=== PATIENT | female | born 1975 | race Two or more races ===

== ENCOUNTER 2017-06-07 23:37 | Emergency (ER) | payer MEDICAID, OTHER ==
[~2017-06-07] VITALS: Ht 152.4 cm; Wt 63.5 kg
[2017-06-08] MEDS ORDERED: OXYCODONE/APAP 5-325 MG TABLET PO ONE (00:15)
[2017-06-08] MEDS ORDERED: ONDANSETRON ODT 4 MG TAB.RAPDIS SL ONE (00:15)
[2017-06-08] MEDS ORDERED: ONDANSETRON ODT 4 MG TAB.RAPDIS ONE (00:23)
[2017-06-08] MEDS ORDERED: OXYCODONE/APAP 5-325 MG TABLET ONE (00:23)
--- NOTE | 2017-06-08 01:14 | NUR ---
Patient discharged to home in stable conditon. Written and verbal after care instructions given. Patient verbalizes understanding of instructions.
== END 2017-06-08 01:15 | disposition home or self-care (01) ==
LOC: ER 23:42
DX: S50.01XA Contusion of right elbow, initial encounter (principal); M54.9 Dorsalgia, unspecified; V89.2XXA Person injured in unspecified motor-vehicle accident, traffic, initial encounter; Z88.6 Allergy status to analgesic agent; Y93.89 Activity, other specified; Y92.410 Unspecified street and highway as the place of occurrence of the external cause; Y99.8 Other external cause status
CPT/HCPCS: 71010; 72110; 73080; 99284; A4663; Q0162

== ENCOUNTER 2017-07-17 19:35 | Emergency (ER) | payer BC, OTHER ==
[~2017-07-17] VITALS: Ht 152.4 cm; Wt 63.5 kg
--- NOTE | 2017-07-17 19:48 | NUR ---
Patient walked in to ER c/o chest pain. Patient states that the pain has been coming and going for approximately 2-3 weeks now and that she was seen at [facility] ER on 06/26/17 and was diagnosed with anxiety. To room 5A.
--- NOTE | 2017-07-17 19:54 | NUR ---
ERMD at bedside for MSE.
[2017-07-17] MEDS ORDERED: IV NORMAL SALINE 1000 ML BAG IV ONE (20:00)
--- NOTE | 2017-07-17 20:14 | NUR ---
Patient's mother exited the room stating patient "needs help" and that "something changed." Patient A/O x4, not able to describe sensation but after speaking with patient she states that she felt a chill. Education provided regarding infusion of cold NS to which the patient calmed and HR slowed. Patient stated "I'm OK now" and education was provided for breathing techniques which seemed to calm the patient further.
[2017-07-17 20:17] LABS: BASOPHILS # (AUTO) 0.1 K/uL (0.0-8.0); BASOPHILS % (AUTO) 0.7 % (0.0-2.0); EOSINOPHILS # (AUTO) 0.1 K/uL (0.0-0.7); EOSINOPHILS % (AUTO) 1.2 % (0.0-7.0); HEMATOCRIT 39.9 % (31.2-41.9); HEMOGLOBIN 13.4 g/dL (10.9-14.3); LYMPHOCYTES # (AUTO) 4.2 K/uL (20.0-40.0); LYMPHOCYTES % (AUTO) 36.2 % (20.5-51.5); MEAN CORPUSCULAR HEMOGLOBIN 27.9 uug (24.7-32.8); MEAN CORPUSCULAR HGB CONC 34 g/dL (32.3-35.6); MEAN CORPUSCULAR VOLUME 83.1 fL (75.5-95.3); MONOCYTES # (AUTO) 0.9 K/uL (2.0-10.0); MONOCYTES % (AUTO) 7.7 % (0.0-11.0); NEUTROPHILS # (AUTO) 6.3 K/uL (1.8-8.9); NEUTROPHILS % (AUTO) 54.2 % (38.5-71.5); PLATELET COUNT (AUTO) 238 K/uL (179-408); WHITE BLOOD COUNT (AUTO) 11.6 K/uL (3.8-11.8)
[2017-07-17 20:23] LABS: CREATININE 0.8 mg/dL (0.6-1.3); POTASSIUM 3.9 mmol/L (3.5-5.1)
[2017-07-17 20:29] LABS: BILIRUBIN,DIRECT 0.1 mg/dL (0.0-0.2); BILIRUBIN,TOTAL 0.3 mg/dL (0.2-1.0); TOTAL PROTEIN, SERUM 8.1 g/dL (6.4-8.2)
[2017-07-18] MEDS ORDERED: LORAZEPAM 0.5 MG TABLET PO ONE (00:15)
[2017-07-18] MEDS: ASPIRIN 325 MG TABLET PO ONE (00:40)
--- NOTE | 2017-07-18 00:43 | NUR ---
Patient discharged to home in stable conditon. Written and verbal after care instructions given. Patient verbalizes understanding of instructions.
[2017-07-18] MEDS ORDERED: ASPIRIN 325 MG TABLET ONE (00:57)
[2017-07-18 01:08] VITALS: BP 114/67
== END 2017-07-18 01:10 | disposition home or self-care (01) ==
LOC: ER 19:36
DX: R07.9 Chest pain, unspecified (principal); E03.9 Hypothyroidism, unspecified; R00.2 Palpitations; R51 Headache
CPT/HCPCS: 36415; 70030-TC; 71010; 84443; 84703; 85025; 93005; A4663; J7030

== ENCOUNTER 2018-11-19 00:14 | Emergency (ER) | payer BC ==
[~2018-11-19] VITALS: Ht 160 cm; Wt 73.5 kg
--- NOTE | 2018-11-19 00:22 | NUR ---
Pt walks into ER with c/o chest pain that started 30 min prior to arrival while getting ready for bed. Denies shortness of breath. Respirations even + unlabored. SA02 100% room air. No N/V/D. Pt placed on continuous cardiac monitoring.
[2018-11-19] MEDS ORDERED: ASPIRIN 81 MG TAB.CHEW PO ONE (00:30)
[2018-11-19] MEDS ORDERED: NITROGLYCERIN OINT 1 GM PACKET TP ONE ×2 (00:30→00:38)
[2018-11-19] MEDS ORDERED: ASPIRIN 81 MG TAB.CHEW ONE (00:38)
[2018-11-19 00:39] LABS: BASOPHILS # (AUTO) 0.1 K/uL (0.0-8.0); EOSINOPHILS # (AUTO) 0.3 K/uL (0.0-0.7); EOSINOPHILS % (AUTO) 2.5 % (0.0-7.0); HEMATOCRIT 41.1 % (31.2-41.9); HEMOGLOBIN 13.7 g/dL (10.9-14.3); LYMPHOCYTES # (AUTO) 5.4 K/uL (20.0-40.0); LYMPHOCYTES % (AUTO) 48.7 % (20.5-51.5); MEAN CORPUSCULAR HEMOGLOBIN 27.7 uug (24.7-32.8); MEAN CORPUSCULAR HGB CONC 33 g/dL (32.3-35.6); MONOCYTES % (AUTO) 9.3 % (0.0-11.0); NEUTROPHILS # (AUTO) 4.2 K/uL (1.8-8.9); NEUTROPHILS % (AUTO) 38.5 % (38.5-71.5); PLATELET COUNT (AUTO) 250 K/uL (179-408); RED BLOOD CELL COUNT(AUTO) 4.94 MIL/uL (3.63-4.92)
[2018-11-19] MEDS ORDERED: ACETAMINOPHEN ES 500 MG TABLET ONE (00:39)
[2018-11-19] MEDS ORDERED: ALPRAZOLAM 0.25 MG TABLET ONE (00:39)
[2018-11-19 00:45] LABS: CREATININE 0.8 mg/dL (0.6-1.3); POTASSIUM 3.6 mmol/L (3.5-5.1)
[2018-11-19] MEDS ORDERED: ALPRAZOLAM 0.25 MG TABLET PO ONE (00:45)
[2018-11-19] MEDS ORDERED: ACETAMINOPHEN ES 500 MG TABLET PO ONE (00:45)
[2018-11-19 00:57] LABS: BILIRUBIN,DIRECT 0.1 mg/dL (0.0-0.2); BILIRUBIN,TOTAL 0.2 mg/dL (0.2-1.0); TOTAL PROTEIN, SERUM 7.9 g/dL (6.4-8.2)
--- NOTE | 2018-11-19 01:29 | NUR ---
Pt states has no chest pain at this time.
--- NOTE | 2018-11-19 01:34 | NUR ---
IV removed. Catheter intact and site benign. Pressure and 4x4 gauze applied to site. No bleeding noted.
--- NOTE | 2018-11-19 01:35 | NUR ---
Patient discharged to home in stable conditon. Written and verbal after care instructions given. Patient verbalizes understanding of instructions. Pt walked out of ER in stable gait with who will drive home. All belongings w pt. VSS. No acute distress noted. No chest pain.
[2018-11-19 01:37] VITALS: BP 104/70
== END 2018-11-19 01:38 | disposition home or self-care (01) ==
LOC: ER 00:15
DX: R07.9 Chest pain, unspecified (principal); E03.9 Hypothyroidism, unspecified; Z88.5 Allergy status to narcotic agent
CPT/HCPCS: 36415; 70030-TC; 71045; 85025; 93005; A4663; A9150

== ENCOUNTER 2021-02-25 10:07 | Emergency (ER) | payer BC, OTHER ==
[~2021-02-25] VITALS: Ht 157.5 cm; Wt 72.6 kg
--- NOTE | 2021-02-25 10:23 | NUR ---
DR Rivers at the bedside for MSE.
[2021-02-25 10:39] LABS: *BILIRUBIN,URIN NEGATIVE (NEGATIVE); *BLOOD, URINE 2+ (NEGATIVE); *CLARITY,URINE CLEAR (CLEAR); *COLOR,URINE YELLOW (YELLOW); *KETONES,URINE NEGATIVE (NEGATIVE); *UROBILINOGEN,URINE 0.2 E.U./dl (NORMAL); LEUKOCYTE ESTERASE ,URINE NEGATIVE (NEGATIVE); NITRITE, URINE NEGATIVE (NEGATIVE); PH,URINE 6.5 (5.0-8.0); UGLUCOSE NEGATIVE (NEGATIVE)
[2021-02-25 10:49] LABS: *URINE HCG, QUAL NEG (NEGATIVE)
[2021-02-25 10:54] LABS: HEMATOCRIT 40.2 % (31.2-41.9); MEAN CORPUSCULAR HEMOGLOBIN 27.4 uug (24.7-32.8); MEAN CORPUSCULAR VOLUME 83.7 fL (75.5-95.3); PLATELET COUNT (AUTO) 242 K/uL (179-408)
--- NOTE | 2021-02-25 10:59 | NUR ---
PT out of ER for CT scan.
[2021-02-25 11:02] LABS: BILIRUBIN,DIRECT 0.1 mg/dL (0.0-0.2); BILIRUBIN,TOTAL 0.4 mg/dL (0.2-1.0); CREATININE 0.6 mg/dL (0.6-1.3); POTASSIUM 3.8 mmol/L (3.5-5.1); TOTAL PROTEIN, SERUM 7.4 g/dL (6.4-8.2)
--- NOTE | 2021-02-25 11:25 | NUR ---
Pt back to ER, resting in bed. NAD noted at this time.
[2021-02-25] MEDS ORDERED: IBUPROFEN 600 MG TABLET PO ONE (11:30)
--- NOTE | 2021-02-25 11:37 | NUR ---
Pt C/O posterior headache, VSS notified and order received.
[2021-02-25] MEDS ORDERED: IBUPROFEN 600 MG TABLET ONE (11:44)
--- NOTE | 2021-02-25 12:00 | NUR ---
Pt states headache is gone, and Motrin was effective.
[2021-02-25 12:06] VITALS: BP 114/77
--- NOTE | 2021-02-25 12:06 | NUR ---
Patient discharged to home in stable condition. Written and verbal after care instructions given. Patient verbalizes understanding of instructions. Stressed follow up or return to ER for worsening s/s. Pt walked out of ER w/ steady gait.
[2021-02-25 13:16] LABS: BACTERIA,URINE NONE SEEN /HPF (NONE SEEN); SQUAMOUS EPITHELIAL CELL,UR FEW /HPF (NONE SEEN); URINE AMORPHOUS URATE FEW /HPF; WBC,URINE 0-3 /HPF (0-3)
== END 2021-02-25 12:07 | disposition home or self-care (01) ==
LOC: ER 10:07
DX: R10.9 Unspecified abdominal pain (principal); R07.2 Precordial pain; N83.202 Unspecified ovarian cyst, left side; N20.0 Calculus of kidney; Z20.822 Contact with and (suspected) exposure to COVID-19; E03.9 Hypothyroidism, unspecified
CPT/HCPCS: 36415; 70030-TC; 71045; 83690; 84703; 85025; 93005; A4663